=== PATIENT | male | born 1940 | race Caucasian/White ===

== ENCOUNTER 2020-01-27 06:53 | Day surgery (SDC) | payer MEDICARE, OTHER ==
[2020-01-27] MEDS ORDERED: Sodium Chloride 0.9% 10 ML Syringe FLUSH PRN (07:00)
[2020-01-27] MEDS ORDERED: Lidocaine 1%/Sod Bicarbonate in NS 8.4% 1 ML Syringe IDERM PRN (07:00)
[2020-01-27] MEDS ORDERED: Lactated Ringers 1,000 ML IV SCH (07:00)
[2020-01-27] MEDS ORDERED: Propofol 200 MG/20 ML SDV ONE (07:17)
[2020-01-27] MEDS ORDERED: Lidocaine 1% 4 ML ONE (07:17)
[2020-01-27] MEDS ORDERED: fentaNYL 100 MCG/2 ML SDV ONE (07:17)
--- NOTE | 2020-01-27 07:34 | PCM.PREANE ---
Preanesthetic Assessment - Procedure Proposed Procedure: egd and colonoscopy - Anesthesia/Transfusion/Family Hx Anesthesia History: Prior Anesthesia Without Reaction Family History of Anesthesia Reaction: No Transfusion History: No Prior Transfusion(s) - Review of Systems General: Chills (with this weather) Pulmonary: Other (heavy breathing for years) Cardiovascular: No Symptoms Gastrointestinal: Diarrhea (occasionally) Neurological: Seizure (back when young) Other: Reports: Easy Bruising, Diabetes - Physical Assessment NPO Status Date: 01/26/20 NPO Status Time: 22:00 Vital Signs: 143/61 56 99% 97.2 20 Height: 5 ft 9 in Weight: 81 kg ASA Class: 3 Mental Status: Alert & Oriented x3 Airway Class: Mallampati = 1 Dentition: Reports: Normal Dentition Thyro-Mental Finger Breadths: 3 Mouth Opening Finger Breadths: 3 ROM/Head Extension: Full Lungs: Clear to Auscultation, Normal Respiratory Effort Cardiovascular: Regular Rate, Regular Rhythm - Lab Values: FBS this am 34- 1/2 amp D50 given IV - Allergies Allergies/Adverse Reactions: Allergies Allergy/AdvReac Type Severity Reaction Status Date / Time chlorpromazine Allergy Mild Cannot Verified 01/26/20 14:29 Remember lisinopril Allergy Mild Cannot Verified 01/26/20 14:29 Remember insulin degludec Allergy Cannot Verified 01/26/20 14:29 [From [employer] FlexTouch Remember U-100] - Blood Blood Available: No - Anesthesia Plan Beta Rosario: Metoprolol Med Last Dose Date: 01/27/20 Med Last Dose Time: 05:00 - Acknowledgements Anesthesia Type Planned: MAC Pt an Appropriate Candidate for the Planned Anesthesia: Yes Alternatives and Risks of Anesthesia Discussed w Pt/Guardian: Yes Pt/Guardian Understands and Agrees with Anesthesia Plan: Yes PreAnesthesia Questionnaire Other HEENT History: wear glasses, gingivitis, pharyngoesophageal dysphagia Cardiovascular History: Reports: CAD, High Cholesterol, Hypertension Respiratory History: Reports: COPD, Other (See Below) Other Respiratory History: restrictive ventilary defect, lung nodule, whooping cough Gastrointestinal History: Reports: GERD, Pancreatitis Genitourinary History: Reports: None TRIPPER History: Reports: None Musculoskeletal History: Reports: Back Pain, Chronic Other Musculoskeletal History: Left side lower hip pain Neurological History: Reports: Other (See Below) Other Neuro History: CVD, vergara's palsy Psychiatric History: Reports: None Endocrine/Metabolic History: Reports: Diabetes, Type II Hematologic History: Reports: None Immunologic History: Reports: None Oncologic (Cancer) History: Reports: None Other Oncologic History: Brother had colon cancer Other Dermatologic History: History of MRSA in ulcer - Infectious Disease History Infectious Disease History: Reports: MRSA - Past Surgical History Head Surgeries/Procedures: Reports: None Cardiovascular Surgical History: Reports: Coronary Artery Bypass Other Cardiovascular Surgeries/Procedures: Coronary Artery Bypass x3 Respiratory Surgical History: Reports: None GI Surgical History: Reports: Cholecystectomy, Colonoscopy, EGD, Hernia Repair/ Other Female Surgical History: Reports: None Male Surgical History: Reports: None Endocrine Surgical History: Reports: None Neurological Surgical History: Reports: None Other Musculoskeletal Surgeries/Procedures:: left carpal tunnel injection, right knee fracture with surgery Oncologic Surgical History: Reports: None - SUBSTANCE USE Smoking Status *Q: Current Every Day Smoker Tobacco Use Within Last Twelve Months: Cigarettes Second Hand Smoke Exposure: Yes Days Per Week of Alcohol Use: 0 Recreational Drug Use History: No - HOME MEDS Home Medications: Home Meds Aspirin 325 mg PO DAILY 01/25/15 [History] Insulin Glarg,Human.Rec.Analog [Lantus Solostar] 12 units SUBCUT TID 01/25/15 [ History] Insulin Glarg,Human.Rec.Analog [Lantus Solostar] 48 units SUBCUT QAM 01/25/15 [ History] Losartan [Cozaar] 50 mg PO BID 01/25/15 [History] Metoprolol Tartrate 50 mg PO BID 01/25/15 [History] Nitroglycerin [Nitrostat] 0.4 mg PO ASDIRECTED PRN 01/25/15 [History] Rosuvastatin [Crestor] 2.5 mg PO Q48H 01/25/15 [History] Omeprazole 20 mg PO DAILY 11/01/15 [History] Ascorbic Acid [Vitamin C] 1,000 mg PO DAILY 01/26/20 [History] Calcium Carbonate [Calcium] 600 mg PO DAILY 01/26/20 [History] Fenofibrate,Micronized [Fenofibrate] 134 mg PO DAILY 01/26/20 [History] Finasteride 5 mg PO DAILY 01/26/20 [History] Isosorbide Mononitrate [Imdur] 30 mg PO BID 01/26/20 [History] Losartan Potassium 100 mg PO DAILY 01/26/20 [History] Multivitamin [Daily Multiple Vitamin] 1 tab PO DAILY 01/26/20 [History] Pyridoxine HCl (Vitamin B6) [Vitamin B-6] 100 mg PO DAILY 01/26/20 [History] Spironolactone [Aldactone] 12.5 mg PO DAILY 01/26/20 [History] amLODIPine Besylate [Amlodipine Besylate] 5 mg PO DAILY 01/26/20 [History] oxyCODONE HCl [Oxycontin] 20 mg PO Q12H 01/26/20 [History] - CURRENT (IN HOUSE) MEDS Current Meds: Current Medications Lactated Ringer's (Ringers, Lactated) 1,000 mls @ 125 mls/hr IV ASDIRECTED JANAE Stop: 01/27/20 23:00 Lidocaine/Sodium Bicarbonate (Buffered Lidocaine 1% In Ns 8.4%) 0.25 ml IDERM ONETIME PRN PRN Reason: Prior to IV Start Stop: 01/27/20 18:00 Sodium Chloride (Saline Flush) 10 ml FLUSH ASDIRECTED PRN PRN Reason: Keep Vein Open Stop: 01/27/20 18:00 Discontinued Medications Fentanyl (Sublimaze) Confirm Administered Dose 100 mcg .ROUTE .STK-MED ONE Stop: 01/27/20 07:18 Lidocaine HCl (Xylocaine-Mpf 1%) Confirm Administered Dose 4 mls @ as directed .ROUTE .STK-MED ONE Stop: 01/27/20 07:18 Propofol (Diprivan 20 Ml) Confirm Administered Dose 400 mg .ROUTE .STK-MED ONE Stop: 01/27/20 07:18
[2020-01-27] MEDS ORDERED: 50% Dextrose in Water 50 ML Syringe ONE (07:43)
[2020-01-27] MEDS: 50% Dextrose in Water 50 ML Syringe IVPUSH PRN ×2 (07:45→08:02)
[2020-01-27] MEDS ORDERED: ePHEDrine Sulfate/0.9% NaCl/Pf 25 MG/5 ML SYRINGE IV ONE (08:35)
--- NOTE | 2020-01-27 09:37 | PCM.OPNOTE ---
- General Post-Op/Procedure Note Date of Surgery/Procedure: 01/27/20 Operative Procedure(s): EGD and colonoscopy Findings: 1. Gastritis 2. Duodenal irregular mucosa (adherent white spots) 3. Gastric polyps 4. Violaceous gastric mucosa 5. Irregular GE junction 6. Cecal polyps x3 7. Transverse colon polyp 8. Descending colon polyps x4 9. Sigmoid colon polyps x4 Pre Op Diagnosis: anemia Post-Op Diagnosis: same [place] [facility] [place]geon: Brandy Trinh Anesthesia Provider: Manjula Suarez Pathology: 1. Duodenal biopsy 2. Gastric antrum 3. GE junction biopsy 4. Cecal polyp x3 5. Transverse colon polyp 6. Descending colon polyp x4 7. Sigmoid colon polyp x4 Fluid Replacement, Intraop: 900 Output, Urine Amount: 0 EBL in mLs: 0 Complications: none apparent Condition: Good
--- NOTE | 2020-01-27 09:37 | PCM.PRNOTE ---
- Free Text/Narrative Note: Operative Report Date of Procedure: January 27 2020 Pre Op Diagnosis: Anemia Post-Op Diagnosis: Same Operative Procedures: 1. EGD with biopsy 2. Colonoscopy to the cecum Primary Surgeon: Brandy Trinh MD Anesthesia Provider: Manjula Suarez CRNA Anesthesia Technique: MAC IV Fluid Replacement, Intraop: 900cc crystalloid Output, Urine Amount: 0cc EBL in mLs: 0cc Findings: 1. Gastritis 2. Duodenal irregular mucosa (adherent white spots) 3. Gastric polyps 4. Violaceous gastric mucosa 5. Irregular GE junction 6. Cecal polyps x3 7. Transverse colon polyp 8. Descending colon polyps x4 9. Sigmoid colon polyps x4 Specimens: 1. Duodenal biopsy 2. Gastric antrum 3. GE junction biopsy 4. Cecal polyp x3 5. Transverse colon polyp 6. Descending colon polyp x4 7. Sigmoid colon polyp x4 Drain/Tubes: None Indication: The patient is a 79-year-old gentleman who presented to the clinic with findings of anemia. The patient reported also having a history of colon polyps. The patient was consented for a diagnostic EGD and colonoscopy. Risks of bleeding, and perforation were discussed, and the patient agreed to the risks and wished to proceed. Description of the procedure: The patient was taken back to the endoscopy suite, and placed in the left lateral decubitus position.A bite block was placed. The patient was sedated with MAC anesthesia. The Olympus video endoscope was inserted into the oropharynx and guided under direct vision into the esophagus, stomach, and duodenum. The duodenal bulb and second portion of the duodenum were unremarkable. The gastric antrum was inspected and cold biopsy forceps were used to take tissue samples for H. pylori. There was gastritis noted in the antrum. The scope was withdrawn to the stomach and retroflexed. There were shattered polyps noted as well as cobblestoning of the mucosa. There was also a violaceous appearance to the mucosa on the body of the stomach near the junction. This abnormal appearing mucosa was biopsied using cold biopsy forceps. This may be the presence of newly healed mucosa. Within this violaceous area, there was a 3mm nodule; this was biopsied using cold biopsy forceps. No erosions or ulcers were noted. The scope was withdrawn to the esophagus. The Z-line had a mildly irregular appearance, and this was biopsied in 4 quadrants using a cold biopsy forceps. No specific Barretts esophagus changes were noted. The endoscope was then withdrawn. Next, anorectal examination was performed. No lesions, masses or hemorrhoids were noted externally or on palpation. The scope was placed into the rectum and advanced to cecum. Upon reaching the cecum, and the patients cecum was entered. There was minimal tortuosity of the colon. The ileocecal valve was well visualized and the appendiceal orifice identified. At this point, the scope was slowly withdrawn, paying attention to the mucosa. The patient had good bowel prep, 85-90% of the mucosa was visible. Several flat colon polyps were noted. A cluster of polypoid mucosa was noted in the cecum, it appeared to be 3 discrete polyps. This was removed using a cold biopsy forceps. In the transverse colon a flat 3 mm polyp was found and this was removed using cold biopsy forceps. There were 4 flat polyps in the descending colon measuring 2 to 3 mm removed with cold biopsy forceps. There were multiple small 2-3mm flat polyps in the sigmoid colon. These did have the appearance of hyperplastic polyps. 4 of these were removed with cold biopsy forceps and sent to pathology was noted. In the rectum, scope was retroflexed and some hemorrhoidal tissue was noted. The scope was placed back in the lumen and excess air was aspirated. The scope was removed. The patient tolerated the procedure very well. Complications: None apparent Condition: The patient was transported to PACU in stable condition. Brandy Trinh MD General Surgery
--- NOTE | 2020-01-27 09:38 | PCM48HPAN ---
Post Anesthesia Note - EVALUATION WITHIN 48HRS OF ANESTHETIC Vital Signs in Normal Range: Yes Patient Participated in Evaluation: Yes Respiratory Function Stable: Yes Airway Patent: Yes Cardiovascular Function Stable: Yes Hydration Status Stable: Yes Pain Control Satisfactory: Yes Nausea and Vomiting Control Satisfactory: Yes Mental Status Recovered: Yes Vital Signs: Last Vital Signs Temp 97.2 F 01/27/20 07:20 Pulse 56 L 01/27/20 07:20 Resp 20 01/27/20 07:20 BP 143/61 H 01/27/20 07:20 Pulse Ox 99 01/27/20 07:20 129/60 58 20 98.8 98%
[2020-01-27 10:22] VITALS: BP 115/67; PULSE 58
== END 2020-01-27 10:18 | disposition home or self-care (01) ==
LOC: JD.SDS 06:53
PROVIDERS: ATTEND Surgery
DX: D12.0 Benign neoplasm of cecum (principal); D12.3 Benign neoplasm of transverse colon; K31.89 Other diseases of stomach and duodenum; K21.0 Gastro-esophageal reflux disease with esophagitis; K29.70 Gastritis, unspecified, without bleeding; K31.7 Polyp of stomach and duodenum; K64.9 Unspecified hemorrhoids; D64.9 Anemia, unspecified; G89.29 Other chronic pain; I25.10 Atherosclerotic heart disease of native coronary artery without angina pectoris; I12.9 Hypertensive chronic kidney disease with stage 1 through stage 4 chronic kidney disease, or unspecified chronic kidney disease; E11.22 Type 2 diabetes mellitus with diabetic chronic kidney disease; N18.9 Chronic kidney disease, unspecified; J44.9 Chronic obstructive pulmonary disease, unspecified; E78.5 Hyperlipidemia, unspecified; F17.210 Nicotine dependence, cigarettes, uncomplicated; Z98.890 Other specified postprocedural states; Z79.899 Other long term (current) drug therapy; Z79.82 Long term (current) use of aspirin; Z79.4 Long term (current) use of insulin; Z88.8 Allergy status to other drugs, medicaments and biological substances; Z90.49 Acquired absence of other specified parts of digestive tract
CPT/HCPCS: 43239; 45380; 82962; 88305; 88342; J2001; J2704; J3010; J7120; 00813

== ENCOUNTER 2021-09-04 12:55 | Emergency (ER) | payer MEDICARE, OTHER ==
[2021-09-04] MEDS ORDERED: Sodium Chloride 0.9% 10 ML Syringe FLUSH PRN (13:48)
--- NOTE | 2021-09-04 13:49 | EDM.PDOC ---
ED HPI GENERAL MEDICAL PROBLEM - General Chief Complaint: Respiratory Problem Stated Complaint: COVID +\COPD\SOB Time Seen by Provider: 09/04/21 13:26 Source of Information: Reports: Patient, RN Notes Reviewed - History of Present Illness INITIAL COMMENTS - FREE TEXT/NARRATIVE: 81 yr old male comes in having tested positive for covid today. He states his has been ill, tested positive for covid last onofre 4 days ago. He has had a very mild cough but has not been otherwise ill. Denies feeling short of breath. No obvious fever, chills, Reid, vomiting, diarrhea or other bothersome sx. He has not been vacinated. He does have hx of Htn., and diabetes. - Related Data Allergies Allergy/AdvReac Type Severity Reaction Status Date / Time chlorpromazine Allergy Mild Cannot Verified 09/04/21 13:20 Remember lisinopril Allergy Mild Cannot Verified 09/04/21 13:20 Remember insulin degludec Allergy Cannot Verified 09/04/21 13:20 [From [employer] Remember U-100] Home Meds: Home Meds Aspirin 325 mg PO DAILY 01/25/15 [History] Insulin Glarg,Human.Rec.Analog [Lantus Solostar] 14 units SUBCUT TID 01/25/15 [History] Insulin Glarg,Human.Rec.Analog [Lantus Solostar] 48 units SUBCUT QAM 01/25/15 [History] Metoprolol Tartrate 50 mg PO BID 01/25/15 [History] Nitroglycerin [Nitrostat] 0.4 mg PO ASDIRECTED PRN 01/25/15 [History] Rosuvastatin [Crestor] 2.5 mg PO Q48H 01/25/15 [History] Omeprazole 20 mg PO DAILY 11/01/15 [History] Ascorbic Acid [Vitamin C] 1,000 mg PO DAILY 01/26/20 [History] Calcium Carbonate [Calcium] 600 mg PO DAILY 01/26/20 [History] Fenofibrate,Micronized [Fenofibrate] 134 mg PO DAILY 01/26/20 [History] Finasteride 5 mg PO DAILY 01/26/20 [History] Isosorbide Mononitrate [Imdur] 30 mg PO BID 01/26/20 [History] Losartan Potassium 100 mg PO DAILY 01/26/20 [History] Multivitamin [Daily Multiple Vitamin] 1 tab PO DAILY 01/26/20 [History] Pyridoxine HCl (Vitamin B6) [Vitamin B-6] 100 mg PO BID 01/26/20 [History] Spironolactone [Aldactone] 12.5 mg PO DAILY 01/26/20 [History] amLODIPine Besylate [Amlodipine Besylate] 5 mg PO DAILY 01/26/20 [History] oxyCODONE HCl [Oxycontin] 20 mg PO Q12H 01/26/20 [History] Past Medical History HEENT History: Reports: Cataract, Impaired Vision Other HEENT History: wear glasses, gingivitis, pharyngoesophageal dysphagia Cardiovascular History: Reports: CAD, High Cholesterol, Hypertension Respiratory History: Reports: COPD, Other (See Below) Other Respiratory History: restrictive ventilary defect, lung nodule, whooping cough Gastrointestinal History: Reports: GERD, Pancreatitis Genitourinary History: Reports: None 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: 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 Musculoskeletal History: Reports: Back Pain, Chronic Other Musculoskeletal History: Left side lower hip pain Neurological History: Reports: Other (See Below) Other Neuro History: CVD, vergara's palsy Psychiatric History: Reports: None Endocrine/Metabolic History: Reports: Diabetes, Type II Hematologic History: Reports: None Immunologic History: Reports: None Oncologic (Cancer) History: Reports: None Other Oncologic History: Brother had colon cancer Other Dermatologic History: History of MRSA in ulcer - Infectious Disease History Infectious Disease History: Reports: Chicken Pox, Measles, MRSA, Novel Coronavirus, Pertussis (Whooping Cough) - Past Surgical History Cardiovascular Surgical History: Reports: Coronary Artery Bypass Other Cardiovascular Surgeries/Procedures: Coronary Artery Bypass x3 GI Surgical History: Reports: Cholecystectomy, Colonoscopy, EGD, Hernia Repair/Other Other Musculoskeletal Surgeries/Procedures:: left carpal tunnel injection, right knee fracture with surgery Social & Family History - Tobacco Use Tobacco Use Status *Q: Current Every Day Tobacco User Years of Tobacco use: 70 Packs/Tins Daily: 0.5 - Caffeine Use Caffeine Use: Reports: None - Recreational Drug Use Recreational Drug Use: No ED ROS GENERAL - Review of Systems Review Of Systems: See Below Constitutional: Denies: Fever, Chills, Diaphoresis HEENT: Reports: No Symptoms Respiratory: Reports: Cough ([place]). Denies: Shortness of Breath Cardiovascular: Denies: Chest Pain GI/Abdominal: Denies: Abdominal Pain, Nausea, Vomiting Musculoskeletal: Reports: No Symptoms Skin: Denies: Rash Neurological: Denies: Dizziness, Headache ED EXAM, GENERAL - Physical Exam Exam: See Below General Appearance: Alert, No Apparent Distress Head: Atraumatic Neck: Supple Respiratory/Chest: No Respiratory Distress, Lungs Clear, Normal Breath Sounds. No: Rhonchi, Wheezing Cardiovascular: Regular Rate, Rhythm GI/Abdominal: Soft, Non-Tender Back Exam: No: CVA Tenderness (L), CVA Tenderness (R) Extremities: Normal Inspection. No: Pedal Edema, Leg Pain Neurological: Alert, Oriented, No Motor/Sensory Deficits Skin Exam: Warm, Dry, Normal Color #1 Interpretation EKG Date: 09/04/21 Time: 14:00 Rhythm: A-Fib Rate (Beats/Min): 121 P-Wave: Absent QRS: LBBB #2 Interpretation EKG Date: 09/04/21 Time: 14:35 Rhythm: NSR Rate (Beats/Min): 99 QRS: LBBB Course - Vital Signs Last Recorded V/S: Last Vital Signs Temp 96.0 F L 09/04/21 18:03 Pulse 50 L 09/04/21 18:03 Resp 16 09/04/21 18:03 BP 135/57 L 09/04/21 18:03 Pulse Ox 100 09/04/21 18:03 - Orders/Labs/Meds Orders: Active Orders 24 hr Category Date Time Status Peripheral IV Insertion Adult [OM.PC] Stat Oth 09/04/21 13:48 Ordered Labs: Laboratory Tests 09/04/21 09/04/21 09/04/21 Range/Units 14:10 14:10 14:10 WBC 4.83 (4.23-9.07) K/mm3 RBC 3.11 L (4.63-6.08) M/mm3 Hgb 10.0 L (13.7-17.5) gm/dl Hct 31.1 L (40.1-51.0) % MCV 100.0 H D (79.0-92.2) fl MCH 32.2 (25.7-32.2) pg MCHC 32.2 (32.2-35.5) g/dl RDW Std Deviation 51.4 H (35.1-43.9) fL Plt Count 97 L (163-337) K/mm3 MPV 12.6 H (9.4-12.3) fl Neutrophils % (Manual) 57 (40-60) % Band Neutrophils % 2 (0-10) % Lymphocytes % (Manual) 25 (20-40) % Atypical Lymphs % 0 % Immat Monocytes % (Man) 0 Monocytes % (Manual) 16 H (2-10) % Eosinophils % (Manual) 0 L (0.8-7.0) % Basophils % (Manual) 0 L (0.2-1.2) Metamyelocytes % 0 Myelocytes % 0 Promyelocytes % 0 Blast Cells % 0 Plasma Cell % (Manual) 0 Nucleated RBCs 0.0 % Platelet Estimate Decreased Anisocytosis 1+ slight Macrocytosis 1+ slight RBC Morph Comment Not Reportable Sodium 135 L (136-145) mEq/L Potassium 5.1 D (3.5-5.1) mEq/L Chloride 104 (98-107) mEq/L Carbon Dioxide 22 (21-32) mEq/L Anion Gap 14.1 (5-15) BUN 40 H (7-18) mg/dL Creatinine 1.8 H (0.7-1.3) mg/dL Est Cr Clr Drug Dosing 33.28 mL/min Estimated GFR (MDRD) 37 (>60) mL/min BUN/Creatinine Ratio 22.2 H (14-18) Glucose 111 H (70-99) mg/dL Calcium 9.2 (8.5-10.1) mg/dL Total Bilirubin 0.4 (0.2-1.0) mg/dL AST 25 (15-37) U/L ALT 21 (16-63) U/L Alkaline Phosphatase 56 (46-116) U/L C-Reactive Protein 2.8 H* (<1.0) mg/dL Total Protein 6.7 (6.4-8.2) g/dl Albumin 3.1 L (3.4-5.0) g/dl Globulin 3.6 gm/dL Albumin/Globulin Ratio 0.9 L (1-2) Meds: Medications Discontinued Medications Generic Name Dose Route Start Last Admin Trade Name Freq PRN Reason Stop Dose Admin Diphenhydramine HCl 50 mg 09/04/21 15:06 Diphenhydramine 50 Mg/Ml Sdv IVPUSH ONETIME PRN hypersensitivity reaction Epinephrine HCl 0.3 mg 09/04/21 15:06 Epinephrine 1 Mg/Ml Sdv IM ONETIME PRN hypersensitivity reaction Famotidine 20 mg 09/04/21 15:06 Famotidine 20 Mg/2 Ml Sdv IVPUSH ONETIME PRN hypersensitivity reaction Bamlanivimab 700 mg/ 160 mls @ 310 mls/hr 09/04/21 15:15 09/04/21 15:40 Etesevimab 1,400 mg/ Sodium IV 09/04/21 15:45 310 mls/hr Chloride ONETIME ONE Administration Methylprednisolone Sodium Succinate 125 mg 09/04/21 15:06 Methylprednisolone Sodium Succinate 125 Mg/2 Ml Sdv IVPUSH ONETIME PRN hypersensitivity reaction Sodium Chloride 10 ml 09/04/21 13:48 09/04/21 14:22 Sodium Chloride 0.9% 10 Ml Syringe FLUSH 10 ml ASDIRECTED PRN Administration Keep Vein Open Sodium Chloride 30 ml 09/04/21 15:15 Sodium Chloride 0.9% 10 Ml Syringe FLUSH ASDIRECTED JANAE - Re-Assessments/Exams Free Text/Narrative Re-Assessment/Exam: 09/04/21 14:51 please disregard both EKG's documented. They are for a different patient. 09/04/21 17:09 CXR does not show pneumonia. With his age of 81, hx Htn and diabetes he is at risk for pneumonia, more serious illness than what he has at this time. I have spoke with him about getting IV regeneron antibody rx before he goes home. I have discussed that this has EUA, has not been fully FDA approved. I have informed him of risk of adverse rx. He agrees to, wants the IV regeneron rx, has no further questions. 09/04/21 17:13. Labs are relatively OK, CRP 2.8. Departure - Departure Time of Disposition: 17:14 Disposition: Home, Self-Care 01 Condition: Fair Clinical Impression: COVID-19 virus infection - Discharge Information Instructions: COVID-19, COVID-19: How to Protect Yourself and Others - CDC, COVID-19: Quarantine vs. Isolation - [facility] (11/17/2020) Referrals: PCP,None [Primary Care Provider] - Forms: ED Department Discharge Additional Instructions: Self isolate for 10 days. Rest. Drink plenty of fluids to maintain hydration. Return to ED for severe difficulty breathing or otherwise as needed. Sepsis Event Note (ED) - Evaluation Sepsis Screening Result: No Definite Risk - Focused Exam Vital Signs: Vital Signs Temp Pulse Resp BP Pulse Ox 09/04/21 18:03 96.0 F L 50 L 16 135/57 L 100 09/04/21 13:15 97.0 F 58 L 16 119/59 L 99 - My Orders Last 24 Hours: My Active Orders 09/04/21 13:48 Peripheral IV Insertion Adult [OM.PC] Stat - Assessment/Plan Last 24 Hours: My Active Orders 09/04/21 13:48 Peripheral IV Insertion Adult [OM.PC] Stat
--- NOTE | 2021-09-04 14:39 | CR ---
Chest: Portable view of the chest was obtained. Comparison: Prior chest x-ray of 01/25/15. Heart size and mediastinum are within normal limits for portable technique. Sternotomy is noted. Lungs are clear with no acute parenchymal change. Impression: 1. Nothing acute is seen on portable chest x-ray. Diagnostic code #1
[2021-09-04] MEDS ORDERED: diphenhydrAMINE 50 MG/ML SDV IVPUSH PRN (15:06)
[2021-09-04] MEDS ORDERED: Famotidine 20 MG/2 ML SDV IVPUSH PRN (15:06)
[2021-09-04] MEDS ORDERED: EPINEPHrine 1 MG/ML SDV IM PRN (15:06)
[2021-09-04] MEDS ORDERED: methylPREDNISolone Sodium Succinate 125 MG/2 ML SDV IVPUSH PRN (15:06)
[2021-09-04] MEDS ORDERED: Sodium Chloride 0.9% 10 ML Syringe FLUSH SCH (15:15)
[2021-09-04] MEDS ORDERED: Bamlanivimab 700 MG, ETESEVIMAB 1,400 MG in Sodium Chloride 0.9% 100 ML IV ONE (15:15)
[2021-09-04 18:06] VITALS: BP 135/57; PULSE 50
== END 2021-09-04 18:10 | disposition home or self-care (01) ==
LOC: JD.ED 12:55
DX: U07.1 COVID-19 (principal); I25.10 Atherosclerotic heart disease of native coronary artery without angina pectoris; E78.00 Pure hypercholesterolemia, unspecified; I10 Essential (primary) hypertension; J44.9 Chronic obstructive pulmonary disease, unspecified; K21.9 Gastro-esophageal reflux disease without esophagitis; E11.9 Type 2 diabetes mellitus without complications; I44.7 Left bundle-branch block, unspecified; Z72.0 Tobacco use; Z88.8 Allergy status to other drugs, medicaments and biological substances; Z88.7 Allergy status to serum and vaccine; Z79.82 Long term (current) use of aspirin; Z79.4 Long term (current) use of insulin; Z79.899 Other long term (current) drug therapy
CPT/HCPCS: 36415; 71045; 80053; 85007; 85027; 86140; 99283; M0245; Q0245

== ENCOUNTER 2021-09-12 18:50 | Emergency (ER) | payer MEDICARE, OTHER ==
[2021-09-12 20:00] VITALS: BP 126/55; PULSE 61
--- NOTE | 2021-09-12 21:07 | EDM.PDOC ---
ED HPI GENERAL MEDICAL PROBLEM - General Chief Complaint: Respiratory Problem Stated Complaint: COVID+/LOW O2 Time Seen by Provider: 09/12/21 20:16 Source of Information: Reports: Patient History Limitations: Reports: No Limitations - History of Present Illness INITIAL COMMENTS - FREE TEXT/NARRATIVE: The patient presents with shortness of breath and cough. He thinks he had COVID 19 one month ago. He has been having a cough and shortness of breath the past couple of days. He has no fever, chills, chest pain, abdominal pain, nausea or vomiting. He has no lung problems such as asthma or COPD. He does have heart disease and had CABG years ago. He has a pulse oximeter at home and it was low but his hands were cold when he arrived. His oxygen saturations on room air was 98%. Onset: Gradual Duration: Day(s): Severity: Moderate Improves with: Reports: None Worsens with: Reports: None Associated Symptoms: Reports: Cough, Shortness of Breath. Denies: Chest Pain, Fever/Chills, Headaches, Nausea/Vomiting - Related Data Allergies Allergy/AdvReac Type Severity Reaction Status Date / Time chlorpromazine Allergy Mild Cannot Verified 09/04/21 13:20 Remember lisinopril Allergy Mild Cannot Verified 09/04/21 13:20 Remember insulin degludec Allergy Cannot Verified 09/04/21 13:20 [From Tresiba FlexTouch Remember U-100] Home Meds: Home Meds Aspirin 325 mg PO DAILY 01/25/15 [History] Insulin Glarg,Human.Rec.Analog [Lantus Solostar] 14 units SUBCUT TID 01/25/15 [History] Insulin Glarg,Human.Rec.Analog [Lantus Solostar] 48 units SUBCUT QAM 01/25/15 [History] Metoprolol Tartrate 50 mg PO BID 01/25/15 [History] Nitroglycerin [Nitrostat] 0.4 mg PO ASDIRECTED PRN 01/25/15 [History] Rosuvastatin [Crestor] 2.5 mg PO Q48H 01/25/15 [History] Omeprazole 20 mg PO DAILY 11/01/15 [History] Ascorbic Acid [Vitamin C] 1,000 mg PO DAILY 01/26/20 [History] Calcium Carbonate [Calcium] 600 mg PO DAILY 01/26/20 [History] Fenofibrate,Micronized [Fenofibrate] 134 mg PO DAILY 01/26/20 [History] Finasteride 5 mg PO DAILY 01/26/20 [History] Isosorbide Mononitrate [Imdur] 30 mg PO BID 01/26/20 [History] Losartan Potassium 100 mg PO DAILY 01/26/20 [History] Multivitamin [Daily Multiple Vitamin] 1 tab PO DAILY 01/26/20 [History] Pyridoxine HCl (Vitamin B6) [Vitamin B-6] 100 mg PO BID 01/26/20 [History] Spironolactone [Aldactone] 12.5 mg PO DAILY 01/26/20 [History] amLODIPine Besylate [Amlodipine Besylate] 5 mg PO DAILY 01/26/20 [History] oxyCODONE HCl [Oxycontin] 20 mg PO Q12H 01/26/20 [History] Past Medical History HEENT History: Reports: Cataract, Impaired Vision Other HEENT History: wear glasses, gingivitis, pharyngoesophageal dysphagia Cardiovascular History: Reports: CAD, High Cholesterol, Hypertension Respiratory History: Reports: COPD, Other (See Below) Other Respiratory History: restrictive ventilary defect, lung nodule, whooping cough Gastrointestinal History: Reports: GERD, Pancreatitis Genitourinary History: Reports: None CONFIGURATION ANALYST History: Reports: None Musculoskeletal History: Reports: Back Pain, Chronic Other Musculoskeletal History: Left side lower hip pain Neurological History: Reports: Other (See Below) Other Neuro History: CVD, vergara's palsy Psychiatric History: Reports: None Endocrine/Metabolic History: Reports: Diabetes, Type II Hematologic History: Reports: None Immunologic History: Reports: None Oncologic (Cancer) History: Reports: None Other Oncologic History: Brother had colon cancer Other Dermatologic History: History of MRSA in ulcer - Infectious Disease History Infectious Disease History: Reports: Chicken Pox, Measles, MRSA, Novel Coronavirus, Pertussis (Whooping Cough) - Past Surgical History Head Surgeries/Procedures: Reports: None Cardiovascular Surgical History: Reports: Coronary Artery Bypass Other Cardiovascular Surgeries/Procedures: Coronary Artery Bypass x3 Respiratory Surgical History: Reports: None GI Surgical History: Reports: Cholecystectomy, Colonoscopy, EGD, Hernia Repair/Other Male Surgical History: Reports: None Endocrine Surgical History: Reports: None Neurological Surgical History: Reports: None Other Musculoskeletal Surgeries/Procedures:: left carpal tunnel injection, right knee fracture with surgery Oncologic Surgical History: Reports: None Social & Family History - Tobacco Use Tobacco Use Status *Q: Current Every Day Tobacco User Years of Tobacco use: 73 Packs/Tins Daily: 1 - Caffeine Use Caffeine Use: Reports: Soda - Recreational Drug Use Recreational Drug Use: No ED ROS GENERAL - Review of Systems Review Of Systems: See Below Constitutional: Reports: No Symptoms HEENT: Reports: No Symptoms Respiratory: Reports: Shortness of Breath, Cough Cardiovascular: Reports: No Symptoms Endocrine: Reports: No Symptoms GI/Abdominal: Reports: No Symptoms : Reports: No Symptoms Musculoskeletal: Reports: No Symptoms ED EXAM, GENERAL - Physical Exam Exam: See Below Exam Limited By: No Limitations General Appearance: Alert, No Apparent Distress Ears: Normal External Exam Nose: Normal Inspection Head: Atraumatic, Normocephalic Neck: Normal Inspection Respiratory/Chest: No Respiratory Distress, Lungs Clear, Normal Breath Sounds Cardiovascular: Regular Rate, Rhythm, No Edema, No Murmur GI/Abdominal: Soft, Non-Tender, No Organomegaly, No Mass Back Exam: Normal Inspection Extremities: Normal Inspection Neurological: Alert, Oriented, No Motor/Sensory Deficits #1 Interpretation EKG Date: 09/12/21 Time: 21:29 Rhythm: Other (sinus bradycardia) Rate (Beats/Min): 56 [place]: Normal P-Wave: Present QRS: Normal ST-T: Normal QT: Normal EKG Interpretation Comments: Q waves in the inferior leads Course - Vital Signs Last Recorded V/S: Last Vital Signs Temp 96.4 F L 09/12/21 19:58 Pulse 61 09/12/21 19:58 Resp 20 09/12/21 19:58 BP 126/55 L 09/12/21 19:58 Pulse Ox 98 09/12/21 19:58 - Orders/Labs/Meds Orders: Active Orders 24 hr Category Date Time Status Cardiac Monitoring [RC] . DIRECTED Care 09/12/21 20:21 Active Chest 1V Frontal [CR] Stat Exams 09/12/21 20:22 Taken Labs: Laboratory Tests 09/12/21 09/12/21 09/12/21 Range/Units 20:47 20:47 20:47 WBC 8.29 (4.23-9.07) K/mm3 RBC 3.27 L (4.63-6.08) M/mm3 Hgb 10.7 L (13.7-17.5) gm/dl Hct 32.5 L (40.1-51.0) % MCV 99.4 H (79.0-92.2) fl MCH 32.7 H (25.7-32.2) pg MCHC 32.9 (32.2-35.5) g/dl RDW Std Deviation 49.3 H (35.1-43.9) fL Plt Count 174 D (163-337) K/mm3 MPV 12.2 (9.4-12.3) fl Neut % (Auto) 52.8 (34.0-67.9) % Lymph % (Auto) 26.8 (21.8-53.1) % [place] % (Auto) 17.6 H (5.3-12.2) % Eos % (Auto) 1.6 (0.8-7.0) Baso % (Auto) 0.6 (0.1-1.2) % Neut # (Auto) 4.38 (1.78-5.38) K/mm3 Lymph # (Auto) 2.22 (1.32-3.57) K/mm3 [place] # (Auto) 1.46 H (0.30-0.82) K/mm3 Eos # (Auto) 0.13 (0.04-0.54) K/mm3 Baso # (Auto) 0.05 (0.01-0.08) K/mm3 PT 12.4 H (9.7-12.0) SECONDS INR 1.12 APTT 28.6 (21.7-31.4) SECONDS D-Dimer, Quantitative 0.77 H (0.19-0.50) mg/L Sodium 138 (136-145) mEq/L Potassium 4.6 (3.5-5.1) mEq/L Chloride 102 (98-107) mEq/L Carbon Dioxide 25 (21-32) mEq/L Anion Gap 15.6 H (5-15) BUN 57 H (7-18) mg/dL Creatinine 2.7 H (0.7-1.3) mg/dL Est Cr Clr Drug Dosing 22.18 mL/min Estimated GFR (MDRD) 23 (>60) mL/min BUN/Creatinine Ratio 21.1 H (14-18) Glucose 35 L* (70-99) mg/dL POC Glucose (70-99) mg/dL Calcium 10.2 H (8.5-10.1) mg/dL Total Bilirubin 0.6 (0.2-1.0) mg/dL AST 34 (15-37) U/L ALT 27 (16-63) U/L Alkaline Phosphatase 55 (46-116) U/L Troponin I < 0.017 (0.00-0.056) ng/mL C-Reactive Protein 2.3 H* (<1.0) mg/dL Total Protein 7.7 (6.4-8.2) g/dl Albumin 3.5 (3.4-5.0) g/dl Globulin 4.2 gm/dL Albumin/Globulin Ratio 0.8 L (1-2) SARS-CoV-2 RNA (NE) (NEGATIVE) 09/12/21 09/12/21 Range/Units 21:32 22:36 WBC (4.23-9.07) K/mm3 RBC (4.63-6.08) M/mm3 Hgb (13.7-17.5) gm/dl Hct (40.1-51.0) % MCV (79.0-92.2) fl MCH (25.7-32.2) pg MCHC (32.2-35.5) g/dl RDW Std Deviation (35.1-43.9) fL Plt Count (163-337) K/mm3 MPV (9.4-12.3) fl Neut % (Auto) (34.0-67.9) % Lymph % (Auto) (21.8-53.1) % [place] % (Auto) (5.3-12.2) % Eos % (Auto) (0.8-7.0) Baso % (Auto) (0.1-1.2) % Neut # (Auto) (1.78-5.38) K/mm3 Lymph # (Auto) (1.32-3.57) K/mm3 [place] # (Auto) (0.30-0.82) K/mm3 Eos # (Auto) (0.04-0.54) K/mm3 Baso # (Auto) (0.01-0.08) K/mm3 PT (9.7-12.0) SECONDS INR APTT (21.7-31.4) SECONDS D-Dimer, Quantitative (0.19-0.50) mg/L Sodium (136-145) mEq/L Potassium (3.5-5.1) mEq/L Chloride (98-107) mEq/L Carbon Dioxide (21-32) mEq/L Anion Gap (5-15) BUN (7-18) mg/dL Creatinine (0.7-1.3) mg/dL Est Cr Clr Drug Dosing mL/min Estimated GFR (MDRD) (>60) mL/min BUN/Creatinine Ratio (14-18) Glucose (70-99) mg/dL POC Glucose 67 L (70-99) mg/dL Calcium (8.5-10.1) mg/dL Total Bilirubin (0.2-1.0) mg/dL AST (15-37) U/L ALT (16-63) U/L Alkaline Phosphatase (46-116) U/L Troponin I (0.00-0.056) ng/mL C-Reactive Protein (<1.0) mg/dL Total Protein (6.4-8.2) g/dl Albumin (3.4-5.0) g/dl Globulin gm/dL Albumin/Globulin Ratio (1-2) SARS-CoV-2 RNA (NE) Positive H (NEGATIVE) - Re-Assessments/Exams Free Text/Narrative Re-Assessment/Exam: 09/12/21 21:07 I ordered an EKG, CXR, labs and COVID 19. 09/12/21 23:36 His CXR shows no infiltrates. His EKG shows a sinus bradycardia with no acute changes. 09/13/21 00:12 His Hgb was low at 10.7. His D-dimer was elevated at 0.77. His is COVID positive but that explains that. His BUN was elevated at 57. His creatinine was elevated at 2.7. His GFR was low at 23. His glucose was 35. His troponin was negative. His CRP was elevated at 2.3. He is still COVID positive. He got juice and ate some of a sandwich. His blood sugar went up to 67 and then 76. He would like to go. I will have him cut his lantus down to 20 until he is eating more. Departure - Departure Time of Disposition: 00:20 Disposition: Home, Self-Care 01 Condition: Good Clinical Impression: Hypoglycemia, Renal insufficiency, COVID-19 - Discharge Information *PRESCRIPTION DRUG MONITORING PROGRAM REVIEWED*: Not Applicable *COPY OF PRESCRIPTION DRUG MONITORING REPORT IN PATIENT MULU: Not Applicable Referrals: Shelley Ramos MD [Primary Care Provider] - 1 Week Forms: ED Department Discharge Additional Instructions: Drink plenty of fluids. Take the lantus one time per day and give only 20 units until you are eating more. Follow up with Dr Ramos within a week. Please return if you are worse. Sepsis Event Note (ED) - Focused Exam Vital Signs: Vital Signs Temp Pulse Resp BP Pulse Ox 09/12/21 19:58 96.4 F L 61 20 126/55 L 98 - My Orders Last 24 Hours: My Active Orders 09/12/21 20:21 Cardiac Monitoring [RC] . DIRECTED 09/12/21 20:22 Chest 1V Frontal [CR] Stat - Assessment/Plan Last 24 Hours: My Active Orders 09/12/21 20:21 Cardiac Monitoring [RC] . DIRECTED 09/12/21 20:22 Chest 1V Frontal [CR] Stat
--- NOTE | 2021-09-13 07:34 | CR ---
Chest: Frontal view of the chest was obtained. Comparison: Prior chest x-ray of the 09/04/21. Heart size and mediastinum are within normal limits. Sternotomy wires are noted. Lungs are clear with no acute parenchymal change. Bony structures are osteopenic. Slight scoliosis is noted within the spine. Impression: 1. Findings as described above. 2. Nothing acute is seen on frontal chest x-ray. Diagnostic code #2
== END 2021-09-13 00:43 | disposition home or self-care (01) ==
LOC: JD.ED 18:50
DX: U07.1 COVID-19 (principal); E11.649 Type 2 diabetes mellitus with hypoglycemia without coma; N28.9 Disorder of kidney and ureter, unspecified; I25.10 Atherosclerotic heart disease of native coronary artery without angina pectoris; E78.00 Pure hypercholesterolemia, unspecified; I10 Essential (primary) hypertension; J44.9 Chronic obstructive pulmonary disease, unspecified; K21.9 Gastro-esophageal reflux disease without esophagitis; Z86.73 Personal history of transient ischemic attack (TIA), and cerebral infarction without residual deficits; Z88.8 Allergy status to other drugs, medicaments and biological substances; Z79.82 Long term (current) use of aspirin; Z72.0 Tobacco use; Z79.4 Long term (current) use of insulin; Z79.899 Other long term (current) drug therapy
CPT/HCPCS: 36415; 71045; 71045-26; 80053; 82947; 84484; 85025; 85379; 85610; 85730; 86140; 93005; 99285-25; U0002

== ENCOUNTER 2021-11-20 17:05 | Emergency (ER) | payer MEDICARE, OTHER ==
[2021-11-20 18:39] VITALS: BP 171/65; PULSE 68
--- NOTE | 2021-11-20 19:11 | EDM.PDOC ---
ED HPI GENERAL MEDICAL PROBLEM - General Chief Complaint: Lower Extremity Injury/Pain Stated Complaint: FALL HIP PAIN Time Seen by Provider: 11/20/21 18:24 Source of Information: Reports: Patient, Family History Limitations: Reports: No Limitations - History of Present Illness INITIAL COMMENTS - FREE TEXT/NARRATIVE: 81-year-old male presents the emergency department today due to left hip pain associated with a fall. Patient states that approximately noon today he went outside to get the garbage can in his slippers and tripped going up a step and fell backwards landing on the concrete. Patient's witnessed the event. Patient and his both state that the patient did not hit his head. Patient's immediately help him up. He states he went inside and took a n ap. This evening when he woke from his nap he was having an extremely hard time moving due to severe left hip pain. Patient is unable to stand and bear weight on the left hip. Several skin tears also noted to the left lateral forearm and elbow. Patient does not take blood thinners. He did take 20 mg OxyContin tab just prior to arrival. Patient states he is on a pain contract which is managed in [place]. Treatments ECOLOGICAL ECONOMIST: Reports: Other (see below) Other Treatments ECOLOGICAL ECONOMIST: oxycontiin 20 mg Left Buttock Pain Score (Numeric/FACES): 9 - Related Data Allergies Allergy/AdvReac Type Severity Reaction Status Date / Time chlorpromazine Allergy Mild Cannot Verified 09/04/21 13:20 Remember lisinopril Allergy Mild Cannot Verified 09/04/21 13:20 Remember insulin degludec Allergy Cannot Verified 09/04/21 13:20 [From Tresiba FlexTouch Remember U-100] Home Meds: Home Meds Aspirin 325 mg PO DAILY 01/25/15 [History] Insulin Glarg,Human.Rec.Analog [Lantus Solostar] 34 units SUBCUT QAM 01/25/15 [History] Metoprolol Tartrate 50 mg PO BID 01/25/15 [History] Nitroglycerin [Nitrostat] 0.4 mg PO ASDIRECTED PRN 01/25/15 [History] Rosuvastatin [Crestor] 2.5 mg PO Q48H 01/25/15 [History] Omeprazole 20 mg PO DAILY 11/01/15 [History] Fenofibrate,Micronized [Fenofibrate] 134 mg PO DAILY 01/26/20 [History] Finasteride 5 mg PO DAILY 01/26/20 [History] Isosorbide Mononitrate [Imdur] 30 mg PO BID 01/26/20 [History] Losartan Potassium 100 mg PO DAILY 01/26/20 [History] Multivitamin [Daily Multiple Vitamin] 1 tab PO DAILY 01/26/20 [History] Pyridoxine HCl (Vitamin B6) [Vitamin B-6] 100 mg PO BID 01/26/20 [History] Spironolactone [Aldactone] 12.5 mg PO DAILY 01/26/20 [History] amLODIPine Besylate [Amlodipine Besylate] 5 mg PO DAILY 01/26/20 [History] oxyCODONE HCl [Oxycontin] 20 mg PO Q12H 01/26/20 [History] Insulin Glarg,Human.Rec.Analog [Lantus] 8 unit INJECT BEDTIME 11/20/21 [History] Insulin Lispro [Humalog] 5 unit INJECT ACLUNCH 11/20/21 [History] Insulin Lispro [Humalog] 8 unit INJECT ACDINNER 11/20/21 [History] Insulin Lispro [Humalog] 8 unit INJECT DAILY 11/20/21 [History] Past Medical History HEENT History: Reports: Cataract, Impaired Vision Other HEENT History: wear glasses, gingivitis, pharyngoesophageal dysphagia Cardiovascular History: Reports: CAD, High Cholesterol, Hypertension Respiratory History: Reports: COPD, Other (See Below) Other Respiratory History: restrictive ventilary defect, lung nodule, whooping cough Gastrointestinal History: Reports: GERD, Pancreatitis Genitourinary History: Reports: None NAIL SETTER History: 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: None Musculoskeletal History: Reports: Back Pain, Chronic Other Musculoskeletal History: Left side lower hip pain Neurological History: Reports: Other (See Below) Other Neuro History: CVD, vergara's palsy Psychiatric History: Reports: None Endocrine/Metabolic History: Reports: Diabetes, Type II Hematologic History: Reports: None Immunologic History: Reports: None Oncologic (Cancer) History: Reports: None Other Oncologic History: Brother had colon cancer Other Dermatologic History: History of MRSA in ulcer - Infectious Disease History Infectious Disease History: Reports: Chicken Pox, Measles, MRSA, Novel Coronavirus, Pertussis (Whooping Cough) - Past Surgical History Head Surgeries/Procedures: Reports: None Cardiovascular Surgical History: Reports: Coronary Artery Bypass Other Cardiovascular Surgeries/Procedures: Coronary Artery Bypass x3 Respiratory Surgical History: Reports: None GI Surgical History: Reports: Cholecystectomy, Colonoscopy, EGD, Hernia Repair/Other Male Surgical History: Reports: None Endocrine Surgical History: Reports: None Neurological Surgical History: Reports: None Other Musculoskeletal Surgeries/Procedures:: left carpal tunnel injection, right knee fracture with surgery Oncologic Surgical History: Reports: None Social & Family History - Caffeine Use Caffeine Use: Reports: Soda Review of Systems - Review of Systems Review Of Systems: Comprehensive ROS is negative, except as noted in HPI. ED EXAM, GENERAL - Physical Exam Exam: See Below Exam Limited By: No Limitations General Appearance: Alert, WD/WN, Mild Distress Ears: Normal External Exam, Hearing Grossly Normal Nose: Normal Inspection Throat/Mouth: Normal Inspection, Normal Lips, Normal Voice, No Airway Compromise Head: Atraumatic Neck: Normal Inspection, Supple Respiratory/Chest: No Respiratory Distress, Lungs Clear, Normal Breath Sounds, No Accessory Muscle Use, Chest Non-Tender Cardiovascular: Normal Peripheral Pulses, Regular Rate, Rhythm, No Edema, No Murmur Peripheral Pulses: 2+: Dorsalis Pedis (L), Dorsalis Pedis (R) GI/Abdominal: Normal Bowel Sounds, Soft, Non-Tender, No Distention (Male) Exam: Deferred Rectal (Males) Exam: Deferred Back Exam: Normal Inspection Extremities: Normal Inspection, Normal Capillary Refill, Limited Range of Motion (Left hip). No: Non-Tender (Left lower buttock very tender with palpation), No Pedal Edema (Trace of pedal edema to the bilateral lower extremities) Neurological: Alert, Oriented, Normal Cognition Psychiatric: Normal Affect, Normal Mood Skin Exam: Warm, Dry, Intact, No Rash, Pallor Lymphatic: No Adenopathy Course - Vital Signs Text/Narrative:: As stated above, patient presents with left hip pain and inability to ambulate or bear weight after falling this afternoon. Patient is unable to perform straight leg raise on the left leg. Right leg has full range of motion. Patient unable to tolerate range of motion exercises on left side. Does complain of pain with palpation to the left lower buttocks area. Will obtain an x-ray of the left hip and pelvis. We will hold off on medicating the patient for pain as he just took 20 mg of OxyContin prior to arrival. Last Recorded V/S: Last Vital Signs Temp 98.1 F 11/20/21 18:36 Pulse 68 11/20/21 18:36 Resp 18 11/20/21 18:36 BP 171/65 H 11/20/21 18:36 Pulse Ox 95 11/20/21 18:36 - Orders/Labs/Meds Orders: Active Orders 24 hr Category Date Time Status Hip wo Cont Lt [CT] Stat Exams 11/20/21 19:57 Taken Sodium Chloride 0.9% [Saline Flush] Med 11/20/21 19:48 Active 10 ml FLUSH ASDIRECTED PRN Saline Lock Insert [OM.PC] Stat Oth 11/20/21 19:48 Ordered Medication Orders Sodium Chloride (Sodium Chloride 0.9% 10 Ml Syringe) 10 ml FLUSH ASDIRECTED PRN PRN Reason: Keep Vein Open Last Admin: 11/20/21 21:06 Dose: 10 ml Documented by: ANGELINA Labs: Laboratory Tests 11/20/21 11/20/21 11/20/21 Range/Units 21:13 21:13 21:13 WBC 9.61 H (4.23-9.07) K/mm3 RBC 3.09 L (4.63-6.08) M/mm3 Hgb 10.1 L (13.7-17.5) gm/dl Hct 31.6 L (40.1-51.0) % MCV 102.3 H (79.0-92.2) fl MCH 32.7 H (25.7-32.2) pg MCHC 32.0 L (32.2-35.5) g/dl RDW Std Deviation 56.8 H (35.1-43.9) fL Plt Count 130 L (163-337) K/mm3 MPV 13.1 H (9.4-12.3) fl Neut % (Auto) 81.8 H (34.0-67.9) % Lymph % (Auto) 7.6 L (21.8-53.1) % [place] % (Auto) 9.8 (5.3-12.2) % Eos % (Auto) 0.3 L (0.8-7.0) Baso % (Auto) 0.3 (0.1-1.2) % Neut # (Auto) 7.86 H (1.78-5.38) K/mm3 Lymph # (Auto) 0.73 L (1.32-3.57) K/mm3 [place] # (Auto) 0.94 H (0.30-0.82) K/mm3 Eos # (Auto) 0.03 L (0.04-0.54) K/mm3 Baso # (Auto) 0.03 (0.01-0.08) K/mm3 PT 12.0 (9.7-12.0) SECONDS INR 1.08 APTT 25.7 (21.7-31.4) SECONDS Sodium 142 (136-145) mEq/L Potassium 4.5 (3.5-5.1) mEq/L Chloride 107 (98-107) mEq/L Carbon Dioxide 27 (21-32) mEq/L Anion Gap 12.5 (5-15) BUN 43 H (7-18) mg/dL Creatinine 1.2 D (0.7-1.3) mg/dL Est Cr Clr Drug Dosing 49.92 mL/min Estimated GFR (MDRD) 58 (>60) mL/min BUN/Creatinine Ratio 35.8 H (14-18) Glucose 98 (70-99) mg/dL Calcium 9.3 (8.5-10.1) mg/dL Magnesium 1.8 (1.8-2.4) mg/dL Total Bilirubin 0.6 (0.2-1.0) mg/dL AST 18 (15-37) U/L ALT 20 (16-63) U/L Alkaline Phosphatase 87 (46-116) U/L Total Protein 7.0 (6.4-8.2) g/dl Albumin 3.8 (3.4-5.0) g/dl Globulin 3.2 gm/dL Albumin/Globulin Ratio 1.2 (1-2) SARS-CoV-2 RNA (NE) (NEGATIVE) 11/20/21 Range/Units 21:50 WBC (4.23-9.07) K/mm3 RBC (4.63-6.08) M/mm3 Hgb (13.7-17.5) gm/dl Hct (40.1-51.0) % MCV (79.0-92.2) fl MCH (25.7-32.2) pg MCHC (32.2-35.5) g/dl RDW Std Deviation (35.1-43.9) fL Plt Count (163-337) K/mm3 MPV (9.4-12.3) fl Neut % (Auto) (34.0-67.9) % Lymph % (Auto) (21.8-53.1) % [place] % (Auto) (5.3-12.2) % Eos % (Auto) (0.8-7.0) Baso % (Auto) (0.1-1.2) % Neut # (Auto) (1.78-5.38) K/mm3 Lymph # (Auto) (1.32-3.57) K/mm3 [place] # (Auto) (0.30-0.82) K/mm3 Eos # (Auto) (0.04-0.54) K/mm3 Baso # (Auto) (0.01-0.08) K/mm3 PT (9.7-12.0) SECONDS INR APTT (21.7-31.4) SECONDS Sodium (136-145) mEq/L Potassium (3.5-5.1) mEq/L Chloride (98-107) mEq/L Carbon Dioxide (21-32) mEq/L Anion Gap (5-15) BUN (7-18) mg/dL Creatinine (0.7-1.3) mg/dL Est Cr Clr Drug Dosing mL/min Estimated GFR (MDRD) (>60) mL/min BUN/Creatinine Ratio (14-18) Glucose (70-99) mg/dL Calcium (8.5-10.1) mg/dL Magnesium (1.8-2.4) mg/dL Total Bilirubin (0.2-1.0) mg/dL AST (15-37) U/L ALT (16-63) U/L Alkaline Phosphatase (46-116) U/L Total Protein (6.4-8.2) g/dl Albumin (3.4-5.0) g/dl Globulin gm/dL Albumin/Globulin Ratio (1-2) SARS-CoV-2 RNA (NE) Negative (NEGATIVE) Meds: Medications Generic Name Dose Route Start Last Admin Trade Name Freq PRN Reason Stop Dose Admin Sodium Chloride 10 ml 11/20/21 19:48 11/20/21 21:06 Sodium Chloride 0.9% 10 Ml Syringe FLUSH 10 ml ASDIRECTED PRN Administration Keep Vein Open Discontinued Medications Generic Name Dose Route Start Last Admin Trade Name [place] PRN Reason Stop Dose Admin Hydromorphone HCl 0.5 mg 11/20/21 19:49 11/20/21 21:05 Hydromorphone 0.5 Mg/0.5 Ml Syringe IVPUSH 11/20/21 19:50 0.5 mg ONETIME ONE Administration - Radiology Interpretation Free Text/Narrative:: [facility] radiologist impression CT of the left lower extremity without contrast, hip: An impacted subcapital fracture of the left hip is present. - Re-Assessments/Exams Free Text/Narrative Re-Assessment/Exam: 11/20/21 19:56 Radiologist impression AP views of the pelvis as well as AP and crosstable lateral views of the left hip: Slight sclerosis is seen within the subcapital region of the left hip which is suspicious for a slightly impacted fracture. Mild chondrocalcinosis is seen within the labrum of both hips. Degenerative changes seen within the lower lumbar spine. Single surgical clip is seen overlying the left pelvis. Vascular calcification is also noted. Impression: 1. Findings suspicious for impacted fracture within the subcapital region of the left hip. 2. Other chronic findings as described above. 11/20/21 19:58 I have ordered for the patient have a CT of the left hip. I have also ordered lab studies as well as a Covid swab. We do not have a surgeon on-call so patient likely will need to be transferred to [place]. 11/20/21 22:33 Lab studies are back. Covid swab is still pending. We are on diversion here at this hospital and patient will require surgery. I have a phone [facility] in [place] and has accepted care of the patient in transfer. Departure - Departure Time of Disposition: 22:59 Disposition: DC/Tfer to Acute Hospital 02 Condition: Fair Clinical Impression: Fracture of left hip Qualifiers: Encounter type: initial encounter Fracture type: closed Qualified Code(s): S72.002A - Fracture of unspecified part of neck of left femur, initial encounter for closed fracture - Discharge Information Referrals: Shelley Ramos MD [Primary Care Provider] - Forms: ED Department Discharge Sepsis Event Note (ED) - Focused Exam Vital Signs: Vital Signs Temp Pulse Resp BP Pulse Ox 11/20/21 18:36 98.1 F 68 18 171/65 H 95 - My Orders Last 24 Hours: My Active Orders 11/20/21 19:48 Sodium Chloride 0.9% [Saline Flush] 10 ml FLUSH ASDIRECTED PRN Saline Lock Insert [OM.PC] Stat 11/20/21 19:57 Hip wo Cont Lt [CT] Stat - Assessment/Plan Last 24 Hours: My Active Orders 11/20/21 19:48 Sodium Chloride 0.9% [Saline Flush] 10 ml FLUSH ASDIRECTED PRN Saline Lock Insert [OM.PC] Stat 11/20/21 19:57 Hip wo Cont Lt [CT] Stat
--- NOTE | 2021-11-20 19:37 | CR ---
Pelvis and left hip: AP view of the pelvis was obtained as well as AP and crosstable lateral views of the left hip. Comparison: No previous pelvis or hip study is available. Slight sclerosis is seen within the subcapital region of the left hip which is suspicious for a slightly impacted fracture. Mild chondrocalcinosis is seen within the labrum of both hips. Degenerative change is seen within the lower lumbar spine. Single surgical clip is seen overlying the left pelvis. Vascular calcification is also noted. Impression: 1. Findings suspicious for impacted fracture within the subcapital region of the left hip. 2. Other chronic findings as described above. Diagnostic code #3
[2021-11-20] MEDS ORDERED: Sodium Chloride 0.9% 10 ML Syringe FLUSH PRN (19:48)
[2021-11-20] MEDS ORDERED: HYDROmorphone 0.5 MG/0.5 ML Syringe IVPUSH ONE (19:49)
[2021-11-21] MEDS ORDERED: HYDROmorphone 0.5 MG/0.5 ML Syringe ONE (00:03)
[2021-11-21] MEDS ORDERED: HYDROmorphone 0.5 MG/0.5 ML Syringe IVPUSH ONE (00:06)
--- NOTE | 2021-11-21 10:42 | CT ---
CT left hip Technique: Multiple axial sections were obtained through the left hip. Reconstructed coronal and sagittal images were obtained. Comparison: Prior pelvis and left hip exam performed earlier on the same day (7:14 PM). Findings: Fracture is identified within the subcapital region of the left hip. Slight impaction is seen laterally. Acetabulum appears to be intact. Vascular calcification is noted. Bladder is somewhat dilated with urine. Impression: 1. Subcapital fracture showing mild lateral impaction. 2. Other findings as noted above. 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
== END 2021-11-21 00:35 ==
LOC: JD.ED 17:05
DX: S72.012A Unspecified intracapsular fracture of left femur, initial encounter for closed fracture (principal); I25.10 Atherosclerotic heart disease of native coronary artery without angina pectoris; E78.00 Pure hypercholesterolemia, unspecified; I10 Essential (primary) hypertension; J44.9 Chronic obstructive pulmonary disease, unspecified; K21.9 Gastro-esophageal reflux disease without esophagitis; E11.9 Type 2 diabetes mellitus without complications; Z88.8 Allergy status to other drugs, medicaments and biological substances; Z88.7 Allergy status to serum and vaccine; Z79.82 Long term (current) use of aspirin; Z79.4 Long term (current) use of insulin; Z79.899 Other long term (current) drug therapy; Z20.822 Contact with and (suspected) exposure to COVID-19; W10.9XXA Fall (on) (from) unspecified stairs and steps, initial encounter
CPT/HCPCS: 36415; 73502; 73700; 80053; 83735; 85025; 85610; 85730; 96374; 96376; 99285; J1170; U0002; 99284

== ENCOUNTER 2022-03-19 16:04 | Emergency (ER) | payer MEDICARE, OTHER ==
[2022-03-19 16:16] VITALS: BP 137/51; PULSE 66
[2022-03-19] MEDS ORDERED: Lidocaine 2% Jelly 10 ML Urojet MUCMEM ONE (16:40)
== END 2022-03-19 19:08 | disposition home or self-care (01) ==
LOC: JD.ED 16:04
DX: R31.0 Gross hematuria (principal); I25.10 Atherosclerotic heart disease of native coronary artery without angina pectoris; J44.9 Chronic obstructive pulmonary disease, unspecified; E78.00 Pure hypercholesterolemia, unspecified; I10 Essential (primary) hypertension; K21.9 Gastro-esophageal reflux disease without esophagitis; Z88.8 Allergy status to other drugs, medicaments and biological substances; Z79.82 Long term (current) use of aspirin; Z79.899 Other long term (current) drug therapy; Z72.0 Tobacco use
CPT/HCPCS: 36415; 51702; 80053; 83735; 85025; 85610; 99283-25

== ENCOUNTER 2022-09-11 09:40 | Emergency (ER) | payer MEDICARE, OTHER ==
[2022-09-11] MEDS ORDERED: Sodium Chloride 0.9% 10 ML Syringe FLUSH PRN (10:21)
[2022-09-11] MEDS ORDERED: Naloxone 0.4 MG/ML SDV IVPUSH ONE (12:14)
[2022-09-11 12:57] VITALS: BP 176/56; PULSE 61
== END 2022-09-11 16:00 | disposition home or self-care (01) ==
LOC: JD.ED 09:40
DX: T38.3X1A Poisoning by insulin and oral hypoglycemic [antidiabetic] drugs, accidental (unintentional), initial encounter (principal); T45.8X1A Poisoning by other primarily systemic and hematological agents, accidental (unintentional), initial encounter; D64.89 Other specified anemias; I25.10 Atherosclerotic heart disease of native coronary artery without angina pectoris; I10 Essential (primary) hypertension; E78.00 Pure hypercholesterolemia, unspecified; J44.9 Chronic obstructive pulmonary disease, unspecified; K21.9 Gastro-esophageal reflux disease without esophagitis; E11.9 Type 2 diabetes mellitus without complications; R00.1 Bradycardia, unspecified; Z72.0 Tobacco use; Z88.8 Allergy status to other drugs, medicaments and biological substances; Z79.82 Long term (current) use of aspirin; Z79.899 Other long term (current) drug therapy; Z79.4 Long term (current) use of insulin
CPT/HCPCS: 36415; 80053; 85025; 93005; 96374; 99284; J2310; 93010

== ENCOUNTER 2023-01-09 18:27 | Emergency (ER) | payer MEDICARE, OTHER ==
[2023-01-09] MEDS ORDERED: Iopamidol 755 Mg/ML 100 ML Bottle IVPUSH ONE (19:31)
[2023-01-09] MEDS ORDERED: Sodium Chloride 0.9% 10 ML Syringe FLUSH ONE (19:45)
[2023-01-09 20:41] LABS: ESTIMATED GFR 40 mL/min (>60)
[2023-01-09 21:13] LABS: CORONAVIRUS COVID-19 NAA NEGATIVE (NEGATIVE)
[2023-01-09] MEDS ORDERED: Sodium Chloride 0.9% 1,000 ML IV ONE (22:38)
[2023-01-10] MEDS ORDERED: Sodium Chloride 0.9% 1,000 ML IV ONE ×2 (00:38→04:02)
[2023-01-10] MEDS ORDERED: Sodium Chloride 0.9% 500 ML IV ONE ×2 (02:05→02:56)
[2023-01-10 07:58] VITALS: BP 156/61; PULSE 75
== END 2023-01-10 07:59 | disposition home or self-care (01) ==
LOC: JD.ED 18:27
DX: R41.0 Disorientation, unspecified (principal); N17.9 Acute kidney failure, unspecified; I25.10 Atherosclerotic heart disease of native coronary artery without angina pectoris; E78.00 Pure hypercholesterolemia, unspecified; I10 Essential (primary) hypertension; J44.9 Chronic obstructive pulmonary disease, unspecified; E11.9 Type 2 diabetes mellitus without complications; N40.0 Benign prostatic hyperplasia without lower urinary tract symptoms; Z88.8 Allergy status to other drugs, medicaments and biological substances; Z88.7 Allergy status to serum and vaccine; Z79.82 Long term (current) use of aspirin; Z79.899 Other long term (current) drug therapy; Z20.822 Contact with and (suspected) exposure to COVID-19
CPT/HCPCS: 0241U; 36415; 70450; 70496; 70498; 71045; 80053; 81001; 82947; 83605; 83735; 84443; 84484; 85025; 85379; 85610; 85730; 86140; 87040; 93005; 96360; 96361; 99285; J3490; J7030; Q9967; 93010; 99284

== ENCOUNTER 2023-01-11 11:22 | Emergency (ER) | payer MEDICARE, OTHER ==
[2023-01-11 11:37] VITALS: BP 142/62; PULSE 69
[2023-01-11] MEDS ORDERED: 50% Dextrose in Water 50 ML Syringe ONE (11:38)
[2023-01-11] MEDS ORDERED: 50% Dextrose in Water 50 ML SDV IV STA (11:39)
[2023-01-11] MEDS ORDERED: Atropine 0.4 MG/ML SDV IVPUSH ONE (12:32)
== END 2023-01-11 16:25 ==
LOC: JD.ED 11:22
DX: I45.9 Conduction disorder, unspecified (principal); R00.1 Bradycardia, unspecified; R94.31 Abnormal electrocardiogram [ECG] [EKG]; I25.10 Atherosclerotic heart disease of native coronary artery without angina pectoris; E78.00 Pure hypercholesterolemia, unspecified; I10 Essential (primary) hypertension; E11.9 Type 2 diabetes mellitus without complications; J44.9 Chronic obstructive pulmonary disease, unspecified; F17.210 Nicotine dependence, cigarettes, uncomplicated; Z88.8 Allergy status to other drugs, medicaments and biological substances; Z79.82 Long term (current) use of aspirin; Z79.899 Other long term (current) drug therapy; Z86.16 Personal history of COVID-19; Z95.1 Presence of aortocoronary bypass graft
CPT/HCPCS: 36415; 71045; 80053; 82947; 83605; 83690; 83880; 84484; 85025; 85610; 93005; 96374; 96375; 99285; J0461; J3490

== ENCOUNTER 2023-01-16 12:31 | Emergency (ER) | payer MEDICARE, OTHER ==
[2023-01-16 14:35] VITALS: BP 132/48; PULSE 60
== END 2023-01-16 14:30 | disposition home or self-care (01) ==
LOC: JD.ED 12:31
DX: G89.18 Other acute postprocedural pain (principal); R07.89 Other chest pain; I25.10 Atherosclerotic heart disease of native coronary artery without angina pectoris; I11.0 Hypertensive heart disease with heart failure; I50.9 Heart failure, unspecified; E78.00 Pure hypercholesterolemia, unspecified; J44.9 Chronic obstructive pulmonary disease, unspecified; K21.9 Gastro-esophageal reflux disease without esophagitis; E11.9 Type 2 diabetes mellitus without complications; Z88.8 Allergy status to other drugs, medicaments and biological substances; Z88.7 Allergy status to serum and vaccine; Z79.82 Long term (current) use of aspirin; Z79.899 Other long term (current) drug therapy
CPT/HCPCS: 71045; 71045-26; 99284

== ENCOUNTER 2023-02-04 15:34 | Emergency (ER) | payer MEDICARE, OTHER ==
[2023-02-04] MEDS ORDERED: Sodium Chloride 0.9% 10 ML Syringe FLUSH PRN (15:40)
[2023-02-04 15:44] VITALS: BP 165/64; PULSE 84
[2023-02-04] MEDS ORDERED: Sodium Chloride 0.9% 10 ML Syringe FLUSH ONE (15:51)
[2023-02-04] MEDS ORDERED: Iopamidol 755 Mg/ML 100 ML Bottle IVPUSH ONE (15:51)
[2023-02-04] MEDS ORDERED: Sodium Chloride 0.9% 100 ML IV SCH (16:00)
== END 2023-02-04 19:10 | disposition home or self-care (01) ==
LOC: JD.ED 15:34
DX: I65.23 Occlusion and stenosis of bilateral carotid arteries (principal); I25.10 Atherosclerotic heart disease of native coronary artery without angina pectoris; I11.0 Hypertensive heart disease with heart failure; I50.9 Heart failure, unspecified; E78.00 Pure hypercholesterolemia, unspecified; J44.9 Chronic obstructive pulmonary disease, unspecified; K21.9 Gastro-esophageal reflux disease without esophagitis; E11.9 Type 2 diabetes mellitus without complications; Z86.73 Personal history of transient ischemic attack (TIA), and cerebral infarction without residual deficits; Z95.0 Presence of cardiac pacemaker; Z88.8 Allergy status to other drugs, medicaments and biological substances; Z79.82 Long term (current) use of aspirin; Z79.899 Other long term (current) drug therapy; Z86.16 Personal history of COVID-19; Z87.891 Personal history of nicotine dependence
CPT/HCPCS: 36415; 70450; 70496; 70498; 80053; 84484; 85025; 85610; 85730; 93005; 99285; J3490; Q9967; 93010; 99284

== ENCOUNTER 2023-04-24 15:33 | Emergency (ER) | payer MEDICARE, OTHER ==
[2023-04-24] MEDS ORDERED: Iopamidol 755 Mg/ML 100 ML Bottle IVPUSH ONE (15:56)
[2023-04-24] MEDS ORDERED: Sodium Chloride 0.9% 10 ML Syringe FLUSH ONE (15:56)
[2023-04-24] MEDS ORDERED: Sodium Chloride 0.9% 100 ML IV SCH (16:00)
[2023-04-24 16:06] LABS: BASOPHILS ABSOLUTE AUTO 0.05 K/mm3 (0.01-0.08); BASOPHILS PERCENT AUTO 0.9 % (0.1-1.2); EOSINOPHILS ABSOLUTE AUTO 0.04 K/mm3 (0.04-0.54); EOSINOPHILS PERCENT AUTO 0.8 (0.8-7.0); HEMATOCRIT 29.4 % (40.1-51.0); HEMOGLOBIN 9.6 gm/dl (13.7-17.5); IMMATURE GRAN ABSOLUTE AUTO 0.03 K/mm3 (0.00-0.10); IMMATURE GRAN PERCENT AUTO 0.6 % (<=1.0); LYMPHOCYTES ABSOLUTE AUTO 0.88 K/mm3 (1.32-3.57); LYMPHOCYTES PERCENT AUTO 16.5 % (21.8-53.1); MEAN CORPUSCULAR HEMOGLOBIN 34.3 pg (25.7-32.2); MEAN CORPUSCULAR HGB CONC 32.7 g/dl (32.2-35.5); MEAN PLATELET VOLUME 13.3 fl (9.4-12.3); MONOCYTES ABSOLUTE AUTO 0.34 K/mm3 (0.30-0.82); MONOCYTES PERCENT AUTO 6.4 % (5.3-12.2); NEUTROPHILS ABSOLUTE AUTO 3.98 K/mm3 (1.78-5.38); NEUTROPHILS PERCENT AUTO 74.8 % (34.0-67.9); PLATELET COUNT,PLT 112 K/mm3 (163-337); WHITE BLOOD CELL COUNT,WBC 5.32 K/mm3 (4.23-9.07)
[2023-04-24 16:28] LABS: INR 1.11; PROTHROMBIN TIME 11.8 SECONDS (9.7-12.0)
[2023-04-24 16:29] LABS: PTT,PARTIAL THROMBOPLSTIN TIME 26.2 SECONDS (21.7-31.4)
[2023-04-24 16:35] LABS: A/G RATIO 0.9 (1-2); ALBUMIN 3.4 g/dl (3.4-5.0); ANION GAP 15.6 (5-15); BILIRUBIN TOTAL 0.5 mg/dL (0.2-1.0); BUN/CREATININE RATIO 23.1 (14-18); CALCIUM 9.5 mg/dL (8.5-10.1); CREATININE 1.3 mg/dL (0.7-1.3); EST CRCL DRUG DOSING (CG) 54.17 mL/min; POTASSIUM,K 5.6 mEq/L (3.5-5.1)
[2023-04-24 16:55] LABS: LACTIC ACID 1.2 mmol/L (0.4-2.0)
[2023-04-24 17:27] LABS: SLIDE REVIEW ABNORMAL SMEAR
[2023-04-24 19:36] LABS: APPEARANCE,URINE CLEAR (Clear); BILIRUBIN,URINE NEGATIVE (Negative); COLOR,URINE YELLOW (Yellow); GLUCOSE,URINE NEGATIVE (Negative); KETONES,URINE NEGATIVE (Negative); LEUKOCYTE ESTERASE,URINE NEGATIVE (Negative); NITRITE,URINE NEGATIVE (Negative); OCCULT BLOOD,URINE NEGATIVE (Negative); PROTEIN,URINE TRACE (Negative); UROBILINOGEN,URINE 0.2 (0.2-1.0)
[2023-04-24 20:08] LABS: BACTERIA,URINE FEW /hpf (FEW); HYALINE CASTS,URINE 0-5 /lpf (0-5); MUCUS,URINE FEW /hpf (FEW); RBC,URINE 0-5 /hpf (0-5); SQUAMOUS EPITHELIAL CELLS,UR 0-5 /hpf (0-5); WBC,URINE 0-5 /hpf (0-5)
[2023-04-24] MEDS ORDERED: Sodium Chloride 0.9% 1,000 ML IV SCH (20:30)
[2023-04-24 21:25] VITALS: BP 123/67; PULSE 87
== END 2023-04-24 21:05 ==
LOC: JD.ED 15:33
DX: R53.1 Weakness (principal); R47.01 Aphasia; I11.0 Hypertensive heart disease with heart failure; I50.9 Heart failure, unspecified; J44.9 Chronic obstructive pulmonary disease, unspecified; I25.10 Atherosclerotic heart disease of native coronary artery without angina pectoris; E11.9 Type 2 diabetes mellitus without complications; Z95.0 Presence of cardiac pacemaker; Z88.8 Allergy status to other drugs, medicaments and biological substances; Z79.82 Long term (current) use of aspirin; Z79.899 Other long term (current) drug therapy; Z86.73 Personal history of transient ischemic attack (TIA), and cerebral infarction without residual deficits; Z72.0 Tobacco use
CPT/HCPCS: 36415; 70450; 70496; 70498; 71045; 80053; 81001; 82947; 83605; 84484; 85025; 85610; 85730; 87040; 93005; 99285; J3490; Q9967

== ENCOUNTER 2023-08-04 09:23 | Emergency (ER) | payer MEDICARE, OTHER ==
[2023-08-04 10:08] LABS: BASOPHILS PERCENT AUTO 0.3 % (0.0-1.0); EOSINOPHILS PERCENT AUTO 0.2 % (0.0-6.0); HEMATOCRIT 29.2 % (42.0-52.0); HEMOGLOBIN 9.8 gm/dl (14.0-18.0); IMMATURE GRAN ABSOLUTE AUTO 0.06 K/mm3 (0.00-0.05); IMMATURE GRAN PERCENT AUTO 0.7 % (0.0-0.4); LYMPHOCYTES ABSOLUTE AUTO 1.3 K/mm3 (1.0-4.8); LYMPHOCYTES PERCENT AUTO 14.8 % (24.0-44.0); MEAN CORPUSCULAR HEMOGLOBIN 34.4 pg (28.0-32.0); MEAN CORPUSCULAR HGB CONC 33.6 g/dl (32.0-36.0); MEAN CORPUSCULAR VOLUME 102.5 fl (83.0-99.0); MEAN PLATELET VOLUME 13.3 fl (9.4-12.4); MONOCYTES ABSOLUTE AUTO 0.8 K/mm3 (0.0-0.8); MONOCYTES PERCENT AUTO 9.5 % (0.0-8.0); NEUTROPHILS ABSOLUTE AUTO 6.5 K/mm3 (1.8-7.7); NEUTROPHILS PERCENT AUTO 74.5 % (41.0-71.0); PLATELET COUNT,PLT 134 K/mm3 (150-400); RED BLOOD CELL COUNT 2.85 M/mm3 (4.52-5.90); WHITE BLOOD CELL COUNT,WBC 8.76 K/mm3 (3.9-11.3)
[2023-08-04] MEDS ORDERED: Sodium Chloride 0.9% 500 ML IV ONE (10:28)
[2023-08-04 10:36] LABS: A/G RATIO 0.8 (1-2); ALBUMIN 3.2 g/dl (3.4-5.0); ANION GAP 18.7 (5-15); BILIRUBIN TOTAL 0.6 mg/dL (0.2-1.0); CALCIUM 9.4 mg/dL (8.5-10.1); CREATININE 1.4 mg/dL (0.7-1.3); EST CRCL DRUG DOSING (CG) 37.7 mL/min; MAGNESIUM 1.6 mg/dL (1.8-2.4); POTASSIUM,K 4.7 mEq/L (3.5-5.1); PROTEIN TOTAL,TP 7.4 g/dl (6.4-8.2); TSH 1.034 uIU/mL (0.358-3.74)
[2023-08-04 10:44] LABS: LACTIC ACID 1.2 mmol/L (0.4-2.0)
[2023-08-04 11:31] LABS: SLIDE REVIEW ABNORMAL SMEAR
[2023-08-04] MEDS ORDERED: Iopamidol 612 MG/ML 100 ML Bottle IVPUSH ONE (12:20)
[2023-08-04] MEDS ORDERED: Magnesium Hydroxide 400 MG/5 ML Susp 30 ML Cup PO ONE (14:43)
[2023-08-04] MEDS ORDERED: Bisacodyl 5 MG Tab PO ONE (14:43)
[2023-08-04 15:17] VITALS: BP 139/79; PULSE 80
== END 2023-08-04 14:55 | disposition home or self-care (01) ==
LOC: JD.ED 09:23
DX: K59.00 Constipation, unspecified (principal); R53.1 Weakness; I11.0 Hypertensive heart disease with heart failure; I50.9 Heart failure, unspecified; I25.10 Atherosclerotic heart disease of native coronary artery without angina pectoris; E78.00 Pure hypercholesterolemia, unspecified; J44.9 Chronic obstructive pulmonary disease, unspecified; E11.9 Type 2 diabetes mellitus without complications; Z88.8 Allergy status to other drugs, medicaments and biological substances; Z79.82 Long term (current) use of aspirin; Z79.899 Other long term (current) drug therapy; Z86.16 Personal history of COVID-19; Z95.1 Presence of aortocoronary bypass graft
CPT/HCPCS: 36415; 71045; 74177; 80053; 83605; 83735; 83880; 84443; 84484; 85025; 85379; 93005; 96360; 99285; J7030; Q9967

== ENCOUNTER 2023-08-05 06:29 | Inpatient (IN) | payer MEDICARE, OTHER ==
[2023-08-05 07:23] LABS: BASOPHILS PERCENT AUTO 0.2 % (0.0-1.0); HEMATOCRIT 27.5 % (42.0-52.0); HEMOGLOBIN 9.2 gm/dl (14.0-18.0); IMMATURE GRAN ABSOLUTE AUTO 0.09 K/mm3 (0.00-0.05); IMMATURE GRAN PERCENT AUTO 0.8 % (0.0-0.4); LYMPHOCYTES ABSOLUTE AUTO 0.7 K/mm3 (1.0-4.8); LYMPHOCYTES PERCENT AUTO 5.7 % (24.0-44.0); MEAN CORPUSCULAR HEMOGLOBIN 34.1 pg (28.0-32.0); MEAN CORPUSCULAR HGB CONC 33.5 g/dl (32.0-36.0); MEAN CORPUSCULAR VOLUME 101.9 fl (83.0-99.0); MEAN PLATELET VOLUME 12.3 fl (9.4-12.4); MONOCYTES ABSOLUTE AUTO 0.9 K/mm3 (0.0-0.8); MONOCYTES PERCENT AUTO 7.5 % (0.0-8.0); NEUTROPHILS PERCENT AUTO 85.8 % (41.0-71.0); PLATELET COUNT,PLT 96 K/mm3 (150-400); WHITE BLOOD CELL COUNT,WBC 11.67 K/mm3 (3.9-11.3)
[2023-08-05] MEDS: Sodium Chloride 0.9% 1,000 ML IV SCH ×2 (07:51→16:40)
[2023-08-05 07:53] LABS: A/G RATIO 0.7 (1-2); ANION GAP 22.8 (5-15); BILIRUBIN TOTAL 0.6 mg/dL (0.2-1.0); BUN/CREATININE RATIO 22.9 (14-18); CALCIUM 9.2 mg/dL (8.5-10.1); CREATININE 1.4 mg/dL (0.7-1.3); EST CRCL DRUG DOSING (CG) 37.7 mL/min; MAGNESIUM 1.8 mg/dL (1.8-2.4); POTASSIUM,K 5.8 mEq/L (3.5-5.1); PROTEIN TOTAL,TP 7.3 g/dl (6.4-8.2)
[2023-08-05 08:05] LABS: SLIDE REVIEW ABNORMAL SMEAR
[2023-08-05] MEDS ORDERED: Ondansetron 4 MG/2 ML SDV IV PRN (09:50)
[2023-08-05] MEDS ORDERED: Ondansetron 4 MG Tab.DIS PO PRN (09:50)
[2023-08-05] MEDS ORDERED: Acetaminophen 325 MG Tab PO PRN (09:50)
[2023-08-05] MEDS ORDERED: Lactated Ringers 1,000 ML IV SCH (10:00)
[2023-08-05] MEDS: Sodium Polystyrene Sulfonate 15 GM/60 ML Susp 60 ML Bot PO ONE ×2 (11:21→12:34)
[2023-08-05] MEDS: Heparin Sodium 5,000 Units/ML Vial SUBCUT SCH ×2 (11:22→18:14)
[2023-08-05] MEDS ORDERED: Iopamidol 755 Mg/ML 100 ML Bottle IVPUSH ONE (12:21)
[2023-08-05] MEDS ORDERED: Sodium Chloride 0.9% 100 ML IV SCH (12:30)
[2023-08-05] MEDS: Sennosides/Docusate Sodium 50-8.6 MG Tab PO SCH (21:46)
[2023-08-05] MEDS: levETIRAcetam 500 MG Tab PO SCH (21:46)
[2023-08-05] MEDS: oxyCODONE ER 20 MG TAB.ER PO SCH (21:46)
[2023-08-05] MEDS: Rosuvastatin 10 MG Tab PO SCH (21:49)
[2023-08-06] MEDS: Heparin Sodium 5,000 Units/ML Vial SUBCUT SCH ×3 (01:00→18:06)
[2023-08-06 06:27] LABS: BASOPHILS PERCENT AUTO 0.4 % (0.0-1.0); HEMATOCRIT 22.9 % (42.0-52.0); HEMOGLOBIN 7.7 gm/dl (14.0-18.0); IMMATURE GRAN ABSOLUTE AUTO 0.04 K/mm3 (0.00-0.05); IMMATURE GRAN PERCENT AUTO 0.8 % (0.0-0.4); LYMPHOCYTES PERCENT AUTO 19.5 % (24.0-44.0); MEAN CORPUSCULAR HEMOGLOBIN 34.2 pg (28.0-32.0); MEAN CORPUSCULAR HGB CONC 33.6 g/dl (32.0-36.0); MEAN CORPUSCULAR VOLUME 101.8 fl (83.0-99.0); MEAN PLATELET VOLUME 12.7 fl (9.4-12.4); MONOCYTES ABSOLUTE AUTO 0.6 K/mm3 (0.0-0.8); MONOCYTES PERCENT AUTO 11.3 % (0.0-8.0); NEUTROPHILS ABSOLUTE AUTO 3.6 K/mm3 (1.8-7.7); PLATELET COUNT,PLT 109 K/mm3 (150-400); RED BLOOD CELL COUNT 2.25 M/mm3 (4.52-5.90); WHITE BLOOD CELL COUNT,WBC 5.29 K/mm3 (3.9-11.3)
[2023-08-06 06:46] LABS: ANION GAP 15.7 (5-15); CALCIUM 8.3 mg/dL (8.5-10.1); CREATININE 1.1 mg/dL (0.7-1.3); EST CRCL DRUG DOSING (CG) 44.12 mL/min; MAGNESIUM 1.7 mg/dL (1.8-2.4); POTASSIUM,K 3.7 mEq/L (3.5-5.1)
[2023-08-06] MEDS ORDERED: Magnesium Sulfate/Water 2 GM in Premix Bag 1 BAG IV ONE (09:00)
[2023-08-06] MEDS: Sennosides/Docusate Sodium 50-8.6 MG Tab PO SCH ×2 (09:26→20:15)
[2023-08-06] MEDS: Polyethylene Glycol 3350 Powder 17 GM Packet PO SCH (09:26)
[2023-08-06] MEDS: levETIRAcetam 500 MG Tab PO SCH ×2 (09:27→20:15)
[2023-08-06] MEDS: Aspirin 81 MG Tab.EC PO SCH (09:32)
[2023-08-06] MEDS: oxyCODONE ER 20 MG TAB.ER PO SCH ×2 (09:43→20:14)
[2023-08-06] MEDS: Insulin Lispro 100 Unit/ML 3 ML KwikPen SUBCUT SCH ×3 (13:10→20:18)
[2023-08-06] MEDS: Doxycycline 100 MG in Sodium Chloride 0.9% 100 ML IV SCH (15:39)
[2023-08-07] MEDS: Heparin Sodium 5,000 Units/ML Vial SUBCUT SCH ×3 (02:15→19:01)
[2023-08-07] MEDS: Doxycycline 100 MG in Sodium Chloride 0.9% 100 ML IV SCH ×2 (02:15→15:58)
[2023-08-07 06:23] LABS: BASOPHILS PERCENT AUTO 0.4 % (0.0-1.0); EOSINOPHILS PERCENT AUTO 0.8 % (0.0-6.0); HEMATOCRIT 23.6 % (42.0-52.0); HEMOGLOBIN 8.1 gm/dl (14.0-18.0); IMMATURE GRAN ABSOLUTE AUTO 0.03 K/mm3 (0.00-0.05); IMMATURE GRAN PERCENT AUTO 0.6 % (0.0-0.4); LYMPHOCYTES ABSOLUTE AUTO 1.2 K/mm3 (1.0-4.8); LYMPHOCYTES PERCENT AUTO 24.1 % (24.0-44.0); MEAN CORPUSCULAR HEMOGLOBIN 33.8 pg (28.0-32.0); MEAN CORPUSCULAR HGB CONC 34.3 g/dl (32.0-36.0); MEAN CORPUSCULAR VOLUME 98.3 fl (83.0-99.0); MONOCYTES ABSOLUTE AUTO 0.6 K/mm3 (0.0-0.8); NEUTROPHILS ABSOLUTE AUTO 3.2 K/mm3 (1.8-7.7); NEUTROPHILS PERCENT AUTO 62.1 % (41.0-71.0); PLATELET COUNT,PLT 129 K/mm3 (150-400); WHITE BLOOD CELL COUNT,WBC 5.07 K/mm3 (3.9-11.3)
[2023-08-07 06:37] LABS: ANION GAP 13.9 (5-15); BUN/CREATININE RATIO 17.8 (14-18); CALCIUM 8.3 mg/dL (8.5-10.1); CREATININE 0.9 mg/dL (0.7-1.3); EST CRCL DRUG DOSING (CG) 55.38 mL/min; MAGNESIUM 1.9 mg/dL (1.8-2.4); POTASSIUM,K 3.9 mEq/L (3.5-5.1)
[2023-08-07] MEDS: oxyCODONE ER 20 MG TAB.ER PO SCH ×2 (08:01→20:31)
[2023-08-07] MEDS: Aspirin 81 MG Tab.EC PO SCH (08:01)
[2023-08-07] MEDS: Sennosides/Docusate Sodium 50-8.6 MG Tab PO SCH ×2 (08:01→20:31)
[2023-08-07] MEDS: Polyethylene Glycol 3350 Powder 17 GM Packet PO SCH (08:02)
[2023-08-07] MEDS: Insulin Lispro 100 Unit/ML 3 ML KwikPen SUBCUT SCH ×4 (08:03→20:33)
[2023-08-07] MEDS ORDERED: Bisacodyl 10 MG Supp RECTAL ONE (10:00)
[2023-08-07] MEDS: levETIRAcetam 500 MG Tab PO SCH ×2 (10:41→20:29)
[2023-08-07] MEDS: Rosuvastatin 10 MG Tab PO SCH (20:33)
[2023-08-08] MEDS: Heparin Sodium 5,000 Units/ML Vial SUBCUT SCH ×2 (01:42→09:23)
[2023-08-08] MEDS: Doxycycline 100 MG in Sodium Chloride 0.9% 100 ML IV SCH (03:44)
[2023-08-08] MEDS: Insulin Lispro 100 Unit/ML 3 ML KwikPen SUBCUT SCH ×2 (07:52→12:07)
[2023-08-08] MEDS: levETIRAcetam 500 MG Tab PO SCH (09:14)
[2023-08-08] MEDS: oxyCODONE ER 20 MG TAB.ER PO SCH (09:15)
[2023-08-08] MEDS: Aspirin 81 MG Tab.EC PO SCH (09:15)
[2023-08-08] MEDS: Sennosides/Docusate Sodium 50-8.6 MG Tab PO SCH (09:15)
[2023-08-08] MEDS: Polyethylene Glycol 3350 Powder 17 GM Packet PO SCH (09:15)
[2023-08-08 12:53] VITALS: BP 110/53; PULSE 67
[2023-08-09] MEDS ORDERED: Rosuvastatin 10 MG Tab PO SCH (21:00)
== END 2023-08-08 14:25 | DRG 641 ==
LOC: JD.ED 06:29 → JD.MS 09:50
PROVIDERS: ADMIT Hospitalist; ATTEND Hospitalist
DX: R53.1 Weakness (principal); E87.5 Hyperkalemia; N17.9 Acute kidney failure, unspecified; N18.31 Chronic kidney disease, stage 3a; R13.10 Dysphagia, unspecified; G89.29 Other chronic pain; I73.9 Peripheral vascular disease, unspecified; K59.00 Constipation, unspecified; E83.42 Hypomagnesemia; D46.9 Myelodysplastic syndrome, unspecified; E78.5 Hyperlipidemia, unspecified; I12.9 Hypertensive chronic kidney disease with stage 1 through stage 4 chronic kidney disease, or unspecified chronic kidney disease; Z66 Do not resuscitate; E11.51 Type 2 diabetes mellitus with diabetic peripheral angiopathy without gangrene; R29.6 Repeated falls; F03.90 Unspecified dementia, unspecified severity, without behavioral disturbance, psychotic disturbance, mood disturbance, and anxiety; R93.89 Abnormal findings on diagnostic imaging of other specified body structures; N40.0 Benign prostatic hyperplasia without lower urinary tract symptoms; E11.9 Type 2 diabetes mellitus without complications; J44.9 Chronic obstructive pulmonary disease, unspecified; I10 Essential (primary) hypertension; Z86.73 Personal history of transient ischemic attack (TIA), and cerebral infarction without residual deficits; I25.10 Atherosclerotic heart disease of native coronary artery without angina pectoris; Z95.0 Presence of cardiac pacemaker; Z98.890 Other specified postprocedural states; Z95.1 Presence of aortocoronary bypass graft; E78.00 Pure hypercholesterolemia, unspecified; Z88.8 Allergy status to other drugs, medicaments and biological substances; K21.9 Gastro-esophageal reflux disease without esophagitis; Z79.4 Long term (current) use of insulin; Z79.82 Long term (current) use of aspirin; Z79.899 Other long term (current) drug therapy; W19.XXXA Unspecified fall, initial encounter
CPT/HCPCS: 36415; 70450; 71275; 80053; 83735; 84484; 85025; 93005; 99285; J7030; 80048; 82947; 83605; 84132; 92526-GN; 92610-GN; 93010; 97116-GP; 97162-GP; 97530-GP; 99284; A9270-GY; J1644; J1815; J3475; J3490; J7120; Q9967